=== PATIENT | female | born 1990 | race Hispanic/Latino ===

== ENCOUNTER 2024-09-15 15:39 | Outpatient (CLI) | payer BC | END 2024-09-15 15:40 | disposition home or self-care (01) | LOC: BICULT 15:39 | PROVIDERS: ATTEND Obstetrics & Gynecology | DX: N94.6 Dysmenorrhea, unspecified (principal) | CPT/HCPCS: 76856 ==

== ENCOUNTER 2024-10-16 10:46 | Outpatient (CLI) | payer BC ==
[2024-10-16] MEDS ORDERED: Iopamidol 30 ML ONE (10:58)
== END 2024-10-16 10:47 | disposition home or self-care (01) ==
LOC: RAD 10:46
PROVIDERS: ATTEND Obstetrics & Gynecology
DX: Z31.41 Encounter for fertility testing (principal)
CPT/HCPCS: 58340; 74740; Q9967